=== PATIENT | female | born 2000 | race Caucasian/White ===

== ENCOUNTER 2020-11-07 13:44 | Emergency (ER) | payer OTHER ==
[~2020-11-07] VITALS: Ht 157.5 cm; Wt 118.0 kg
[2020-11-07 16:08] LABS: BACTERIA,URINE FEW /HPF (0-FEW); BILIRUBIN,URINE NEG (NEG); CLARITY,URINE CLEAR; COLOR,URINE STRAW; GLUCOSE,URINE NEG (NEG); NITRITE,URINE NEG (NEG); UROBILINOGEN,URINE 0.2 mg/dL (0.2 mg/dL)
[2020-11-07 16:09] LABS: SQUAMOUS EPITHELIAL CELL,UR MANY /LPF; YEAST,URINE PRESENT /HPF
[2020-11-07] MEDS ORDERED: CEPH500T PO (16:53)
--- NOTE | 2020-11-07 16:55 | PHYS DOC ---
Past History Past Medical History: Asthma, Other Additional Past Medical Histor: rsv as ; eczema Past Surgical History: No Surgical History Alcohol Use: Occasionally General Adult EDM: Chief Complaint: VAGINAL PROBLEM HPI: HPI: Patient is a 20-year-old female who presents with vaginal burning, itchy and large amount of discharge. Patient states "I ended up getting this right before my period every month". Patient denies odor. Patient does report having unprotected sex a month ago with a new partner. Patient denies medical history or history of STDs. Review of Systems: Review of Systems: Constitutional: Denies fever or chills Eyes: Denies change in visual acuity HENT: Denies nasal congestion or sore throat Respiratory: Denies cough or shortness of breath Cardiovascular: Denies chest pain or edema GI: Denies abdominal pain, nausea, vomiting, bloody stools or diarrhea : Denies dysuria Musculoskeletal: Denies back pain or joint pain Integument: Denies rash Neurologic: Denies headache, focal weakness or sensory changes Endocrine: Denies polyuria or polydipsia Lymphatic: Denies swollen glands Psychiatric: Denies depression or anxiety Vaginal: red, white discharge Allergies: Allergies: Allergies Coded Allergies Type Severity Reaction Last Updated Verified No Known Drug Allergies 11/07/20 No Physical Exam: PE: Constitutional: Well developed, well nourished, no acute distress, non-toxic appearance. [] HENT: Normocephalic, atraumatic, bilateral external ears normal, oropharynx moist, no oral exudates, nose normal. [] Eyes: PERRLA, EOMI, conjunctiva normal, no discharge. [] Neck: Normal range of motion, no tenderness, supple, no stridor. [] Cardiovascular:Heart rate regular rhythm, no murmur [] Lungs & Thorax: Bilateral breath sounds clear to auscultation [] Abdomen: Bowel sounds normal, soft, no tenderness, no masses, no pulsatile masses. [] Skin: Warm, dry, no erythema, no rash. [] Back: No tenderness, no CVA tenderness. [] Extremities: No tenderness, no cyanosis, no clubbing, ROM intact, no edema. [] Neurologic: Alert and oriented X 3, normal motor function, normal sensory function, no focal deficits noted. [] Psychologic: Affect normal, judgement normal, mood normal. [] Vaginal: redness, clumpy,white discharge Current Patient Data: Labs: Laboratory Tests Test 11/07/20 14:40 11/07/20 15:13 Urine Collection Type Unknown Urine Color Straw Urine Clarity Clear Urine pH 8.0 Urine Specific [place] 1.015 Urine Protein Neg (NEG-TRACE) Urine Glucose (UA) Neg mg/dL (NEG) Urine Ketones (Stick) Neg mg/dL (NEG) Urine Blood Trace (NEG) Urine Nitrite Neg (NEG) Urine Bilirubin Neg (NEG) Urine Urobilinogen Dipstick 0.2 mg/dL (0.2 mg/dL) Urine Leukocyte Esterase Large (NEG) Urine RBC 3-5 /HPF (0-2) Urine WBC 5-10 /HPF (0-4) Urine Squamous Epithelial Cells Many /LPF Urine Bacteria Few /HPF (0-FEW) Urine Yeast Present /HPF POC Urine HCG, Qualitative hcg negative (Negative) Microbiology 11/07/20 Wet Prep - Final, Complete Vital Signs: Vital Signs Date Time Temp Pulse Resp B/P (MAP) Pulse Ox O2 Delivery O2 Flow Rate FiO2 11/07/20 13:54 98.6 80 18 130/77 (94) 99 Room Air EKG: EKG: [] Radiology/Procedures: Radiology/Procedures: [] Heart Score: C/O Chest Pain: No Risk Factors: Risk Factors: DM, Current or recent (<one month) smoker, HTN, HLP, family history of CAD, obesity. Risk Scores: Score 0 - 3: 2.5% MACE over next 6 weeks - Discharge Home Score 4 - 6: 20.3% MACE over next 6 weeks - Admit for Clinical Observation Score 7 - 10: 72.7% MACE over next 6 weeks - Early Invasive Strategies Course & Med Decision Making: Course & Med Decision Making Pertinent Labs and Imaging studies reviewed. (See chart for details) [] Patient had a large amount of clumpy, white discharge on vaginal exam. Patient's vaginal area was red and irritated from patient scratching. No odor present. Wet prep and GC chlamydia swabs taken. test was negative. Urine was present for yeast, leuks, WBCs. Treated patient with Diflucan in the emergency room and sent home with a prescription for Keflex for UTI. Patient to follow-up with [facility] for reoccurring yeast infections. Patient instructed to return to emergency room with worsening symptoms or concerns. Dragon Disclaimer: Jamee Disclaimer: This electronic medical record was generated, in whole or in part, using a voice recognition dictation system. Departure Departure: Impression: Primary Impression: Yeast infection Disposition: 01 DC HOME SELF CARE/HOMELESS Condition: STABLE Referrals: PCP,DIA (PCP) Additional Instructions: You are seen in the emergency room today for vaginal discharge and itching. Your results came back positive for a UTI and also yeast. You were treated in the emergency room for yeast infection and sent home with a prescription for UTI. You need to follow-up with your [facility] due to chronic yeast infections. Please return to emergency room with worsening symptoms or concerns. EMERGENCY DEPARTMENT GENERAL DISCHARGE INSTRUCTIONS Thank you for coming to [facility] (ED) today and trusting us with you care. We trust that you had a positivie experience in our Emergency Department. If you wish to speak to the department management, you may call the director at [phone]. YOUR FOLLOW UP INSTRUCTIONS ARE FOLLOWS: 1. Do you have a private Doctor? If you do not have a private doctor, please ask for a resource list of physicians or clinics that may be able to assist you with follow up care. 2. The Emergency Physician has interpreted your x-rays. The X-Ray specialist will also review them. If there is a change in the findings, you will be notified in 48 hours when at all possible. 3. A lab test or culture has been done, your results will be reviewed and you will be notified if you need a change in treatment. ADDITIONAL INSTRUCTIONS AND INFORMATION: 1. Your care today has been supervised by a physician who is specially trained in emergency care. Many problems require more than one evaluation for a complete diagnosis and treatment. We recommend that you schedule your follow up appointment as recommended to ensure complete treatment of you illness or injury. If you are unable to obtain follow up care and continue to have a problem, or if your condition worsens, we recommend that you return to the ED. 2. We are not able to safely determine your condition over the phone nor are we able to give sound medical advice over the phone. For these safety reasons, if you call for medical advice we will ask you to come to the ED for further evaluation. 3. If you have any questions regarding these discharge instructions please call the ED at [phone]. SAFETY INFORMATION: In the interest of safety, wellness, and injury prevention; we encourage you to wear your sealbelt, if you smoke; quite smoking, and we encourage family to use a protective helmet for bicycling and other sporting events that present an increased risk for head injury. IF YOUR SYMPTOMS WORSEN OR NEW SYMPTOMS DEVELOP, OR YOU HAVE CONCERNS ABOUT YOUR CONDITION; OR IF YOUR CONDITION WORSENS WHILE YOU ARE WAITING FOR YOUR FOLLOW UP APPOINTMENT; EITHER CONTACT YOUR PRIMARY CARE DOCTOR, THE PHYSICIAN WHOSE NAME AND NUMBER YOU WERE GIVEN, OR RETURN TO THE ED IMMEDIATELY. Scripts Cephalexin (CEPHALEXIN) 500 Mg Tablet 500 MG PO BID for uti for 7 Days, #14 TAB Prov: WADE AGUILAR APRN 11/07/20 WADE AGUILAR APRN Nov 07, 2020 16:55
[2020-11-07] MEDS ORDERED: FLUCONAZOLE 100 MG TABLET. PO ONE (17:00)
[2020-11-07 17:03] VITALS: BP 133/81
== END 2020-11-07 17:03 | disposition home or self-care (01) ==
LOC: ER 13:44
DX: B37.3 Candidiasis of vulva and vagina (principal); J45.909 Unspecified asthma, uncomplicated
CPT/HCPCS: 81001; 81025; 87086; 87491; 87591; 99284; Q0111

== ENCOUNTER 2020-11-25 11:46 | Emergency (ER) | payer OTHER ==
[~2020-11-25] VITALS: Ht 157.5 cm; Wt 118.7 kg
[~2020-11-25 11:46] MED LIST: CEPH500T PO
[2020-11-25 11:51] VITALS: BP 134/87
[2020-11-25] MEDS ORDERED: FLUCONAZOLE 100 MG TABLET. PO ONE (13:00)
--- NOTE | 2020-11-25 13:02 | PHYS DOC ---
Past History Past Medical History: Asthma, Other Additional Past Medical Histor: rsv as ; eczema Past Surgical History: No Surgical History Alcohol Use: Occasionally Adult General Chief Complaint Chief Complaint: SEXUALLY TRANSMITTED DISEASE HPI HPI Patient is a 20-year-old female with past history of asthma presenting the [facility] concern for new onset of vaginal discomfort. Patient states that a week and a half ago she was seen in the emergency department for discomfort was diagnosed with urinary tract infection and yeast infection. Patient states at that time she was diagnosed with gonorrhea was discharged home with a course of doxycycline and was given a single dose of fluconazole. Patient states that her symptoms initially resolved after taking the doxycycline however states that her symptoms of yeast infection and return with irritation, vaginal pain and usual discharge. Patient is requesting that her urine and cervix be tested to make sure that those infections are gone. Patient does separately state that she has symptoms of vaginal yeast infection that occur with her menses. Denies any new fever, chills, nausea or vomiting. Denies any new sexual contacts and states that she is no longer sexually active Review of Systems Review of Systems Constitutional: Denies fever or chills [] Eyes: Denies change in visual acuity, redness, or eye pain [] HENT: Denies nasal congestion or sore throat [] Respiratory: Denies cough or shortness of breath [] Cardiovascular: No additional information not addressed in HPI [] GI: Denies abdominal pain, nausea, vomiting, bloody stools or diarrhea [] : Denies dysuria or hematuria [] Musculoskeletal: Denies back pain or joint pain [] Integument: Denies rash or skin lesions [] Neurologic: Denies headache, focal weakness or sensory changes [] Endocrine: Denies polyuria or polydipsia [] All other systems were reviewed and found to be within normal limits, except as documented in this note. Current Medications Current Medications Current Medications Medications (Trade) Dose Ordered Sig/Ivonne Start Time Stop Time Status Last Admin Dose Admin Fluconazole (Diflucan) 100 mg 1X ONCE 11/25/20 13:00 11/25/20 13:01 Allergies Allergies Allergies Coded Allergies Type Severity Reaction Last Updated Verified No Known Drug Allergies 11/07/20 No Physical Exam Physical Exam Constitutional: Well developed, well nourished, no acute distress, non-toxic appearance. [] HENT: Normocephalic, atraumatic, bilateral external ears normal, oropharynx moist, no oral exudates, nose normal. [] Eyes: PERRLA, EOMI, conjunctiva normal, no discharge. [] Neck: Normal range of motion, no tenderness, supple, no stridor. [] Cardiovascular:Heart rate regular rhythm, no murmur [] Lungs & Thorax: Bilateral breath sounds clear to auscultation [] Abdomen: Bowel sounds normal, soft, no tenderness, no masses, no pulsatile masses. [] Skin: Warm, dry, no erythema, no rash. [] Back: No tenderness, no CVA tenderness. [] Extremities: No tenderness, no cyanosis, no clubbing, ROM intact, no edema. [] Neurologic: Alert and oriented X 3, normal motor function, normal sensory function, no focal deficits noted. [] Psychologic: Affect normal, judgement normal, mood normal. [] Current Patient Data Vital Signs Vital Signs Date Time Temp Pulse Resp B/P (MAP) Pulse Ox O2 Delivery O2 Flow Rate FiO2 11/25/20 11:51 98.1 70 16 134/87 (103) 97 Room Air EKG EKG [] Radiology/Procedures Radiology/Procedures [] Heart Score C/O Chest Pain: No Risk Factors: Risk Factors: DM, Current or recent (<one month) smoker, HTN, HLP, family history of CAD, obesity. Risk Scores: Risk Factors: DM, Current or recent (<one month) smoker, HTN, HLP, family history of CAD, obesity. Course & Med Decision Making Course & Med Decision Making Pertinent Labs and Imaging studies reviewed. (See chart for details) 20f presenting with what appears to be an acute onset of yeast infection also requesting gonorrhea and urine testing. Analysis obtained and negative. Patient be discharged home with a course of fluconazole and instructed to follow-up results for gonorrhea and Chlamydia testing Dragon Disclaimer Dragon Disclaimer This electronic medical record was generated, in whole or in part, using a voice recognition dictation system. Departure Departure: Impression: Primary Impression: Vaginal candidiasis Disposition: 01 DC HOME SELF CARE/HOMELESS Condition: GOOD Referrals: PCP,NO (PCP) Patient Instructions: [place] Infection, Adult, Candidal Vulvovaginitis, [id number] Additional Instructions: EMERGENCY DEPARTMENT GENERAL DISCHARGE INSTRUCTIONS Thank you for coming to [facility] (ED) today and trusting us with you care. We trust that you had a positive experience in our Emergency Department. If you wish to speak to the department management, you may call the Director at [phone]. YOUR FOLLOW UP INSTRUCTIONS ARE FOLLOWS: 1. Do you have a private Doctor? If you do not have a private doctor, please ask for a resource list of physicians or clinics that may be able to assist you with follow up care. 2. The Emergency Physicain has interpreted your x-rays. The X-Ray specialist will also review them. If there is a change in the findings, you will be notified in 48 hours when at all possible. 3. A lab test or culture has been done, your results will be reviewed and you will be notified if you need a change in treatment. ADDITIONAL INSTRUCTIONS AND INFORMATION: 1. Your care today has been supervised by a physician who is specially trained in emergency care. Many problems require more than one evaluation for a complete diagnosis and treatment. We recommend that you schedule your follow up appointment as recommended to ensure complete treatment of you illness or injury. If you are unable to obtain follow up care and continue to have a problem, or if your condition worsens, we recommend that you return to the ED. 2. We are not able to safely determine your condition over the phone nor are we able to give sound medical advice over the phone. For these safety reasons, if you call for medical advice we will ask you to come to the ED for further evaluation. 3. If you have any questions regarding these discharge instructions please call the ED at [phone]. SAFETY INFORMATION: In the interest of safety, wellness, and injury prevention; we encourage you to wear your sealbelt, if you smoke; quite smoking, and we encourage family to use a protective helmet for bicycling and other sporting events that present an increased risk for head injury. IF YOUR SYMPTOMS WORSEN OR NEW SYMPTOMS DEVELOP, OR YOU HAVE CONCERNS ABOUT YOUR CONDITION; OR IF YOUR CONDITION WORSENS WHILE YOU ARE WAITING FOR YOUR FOLLOW UP APPOINTMENT; EITHER CONTACT YOUR PRIMARY CARE DOCTOR, THE PHYSICIAN WHOSE NAME AND NUMBER YOU WERE GIVEN, OR RETURN TO THE ED IMMEDIATELY. Scripts Fluconazole (FLUCONAZOLE) 100 Mg Tablet 1 TAB PO ONCE for pain, #1 TAB 3 Refills Prov: PREET ROMAN MD 11/25/20 PREET ROMAN MD Nov 25, 2020 13:02
[2020-11-25 13:18] LABS: AMORPHOUS SEDIMENT,UR PRESENT /HPF; BACTERIA,URINE 0 /HPF (0-FEW); BILIRUBIN,URINE NEG (NEG); CLARITY,URINE CLEAR; COLOR,URINE YELLOW; GLUCOSE,URINE NEG (NEG); NITRITE,URINE NEG (NEG); RBC,URINE RARE /HPF (0-2); SQUAMOUS EPITHELIAL CELL,UR MANY /LPF
[2020-11-25] MEDS ORDERED: FLUC100T4 PO (13:48)
[2020-11-26 20:07] LABS: CHLAMYDIA PROBE Negative (Negative)
== END 2020-11-25 13:54 | disposition left against medical advice (07) ==
LOC: ER 11:46
DX: B37.3 Candidiasis of vulva and vagina (principal); J45.909 Unspecified asthma, uncomplicated; Z87.440 Personal history of urinary (tract) infections
CPT/HCPCS: 81001; 87491; 87591; 99283

== ENCOUNTER 2021-01-10 15:05 | Emergency (ER) | payer OTHER ==
[~2021-01-10] VITALS: Ht 152.4 cm; Wt 122.0 kg
[~2021-01-10 15:05] MED LIST changes: +FLUC100T4 PO
[2021-01-10 15:43] VITALS: BP 119/91
[2021-01-10 16:17] LABS: BACTERIA,URINE FEW /HPF (0-FEW); BILIRUBIN,URINE NEG (NEG); CLARITY,URINE CLEAR; COLOR,URINE YELLOW; GLUCOSE,URINE NEG (NEG); NITRITE,URINE NEG (NEG); RBC,URINE 20-40 /HPF (0-2); SQUAMOUS EPITHELIAL CELL,UR OCC /LPF
[2021-01-10] MEDS ORDERED: cefTRIAXone IM 1 GM VIAL IM ONE (16:42)
[2021-01-10] MEDS ORDERED: cefTRIAXone IM 500 MG VIAL. IM ONE (16:45)
[2021-01-10] MEDS ORDERED: FLUC150T PO (16:50)
[2021-01-10] MEDS ORDERED: DOXY100T PO (16:50)
--- NOTE | 2021-01-10 16:51 | PHYS DOC ---
Past History Past Medical History: No Pertinent History Additional Past Medical Histor: rsv as infant; eczema Past Surgical History: No Surgical History Alcohol Use: Occasionally Adult General Chief Complaint Chief Complaint: SEXUALLY TRANSMITTED DISEASE HPI HPI Patient is a 20-year-old female presents emergency department complaining of an STD exposure. Patient states she had unprotected vaginal sex with a male 1 week ago who told her today he tested positive for gonorrhea and chlamydia. Patient states she is on day 2 of her menstrual cycle, states she cannot determine whether she is having vaginal discharge or if it is normal menses discharge. Patient denies any vaginal itching, denies vaginal sores or vaginal pain. Patient denies any abdominal cramping or pelvic cramping. Patient denies nausea vomiting diarrhea or constipation. Patient states that she has been getting vaginal yeast infections once to twice a month for several years now. Patient states she comes to the ER and they always treat her with the same medications. Patient states she has not followed up with an [employer] or the health department. Patient states she wishes to be treated for gonorrhea chlamydia, also wants a medication to treat a yeast infection she knows she will get from taking an antibiotic. Review of Systems Review of Systems 14 body systems of review of systems have been reviewed. See HPI for pertinent positives and negative responses, otherwise all other systems are negative, nonpertinent or noncontributory. Current Medications Current Medications Current Medications Medications (Trade) Dose Ordered Sig/Ivonne Start Time Stop Time Status Last Admin Dose Admin Ceftriaxone Sodium (Rocephin Im) 500 mg 1X ONCE 01/10/21 16:45 01/10/21 16:46 UNV Allergies Allergies Allergies Coded Allergies Type Severity Reaction Last Updated Verified No Known Drug Allergies 11/07/20 No Physical Exam Physical Exam Constitutional: Well developed, well nourished, no acute distress, non-toxic appearance. 20-year-old female no apparent distress. HENT: Normocephalic, atraumatic, bilateral external ears normal, oropharynx moist, no oral exudates, nose normal. Eyes: PERRLA, EOMI, conjunctiva normal, no discharge. Neck: Normal range of motion, no tenderness, supple, no stridor. Cardiovascular:Heart rate regular rhythm, no murmur Lungs & Thorax: Bilateral breath sounds clear to auscultation Abdomen: Bowel sounds normal, soft, no tenderness, no masses, no pulsatile masses. Skin: Warm, dry, no erythema, no rash. Back: No tenderness, no CVA tenderness. Extremities: No tenderness, no cyanosis, no clubbing, ROM intact, no edema. Neurologic: Alert and oriented X 3, normal motor function, normal sensory function, no focal deficits noted. Psychologic: Affect normal, judgement normal, mood normal. Current Patient Data Vital Signs Vital Signs Date Time Temp Pulse Resp B/P (MAP) Pulse Ox O2 Delivery O2 Flow Rate FiO2 01/10/21 15:43 98.6 67 20 119/91 (100) 97 Room Air Lab Results Laboratory Tests Test 01/10/21 15:40 01/10/21 15:43 Urine Collection Type Unknown Urine Color Yellow Urine Clarity Clear Urine pH 7.0 Urine Specific [place] 1.020 Urine Protein Neg (NEG-TRACE) Urine Glucose (UA) Neg mg/dL (NEG) Urine Ketones (Stick) Neg mg/dL (NEG) Urine Blood Large (NEG) Urine Nitrite Neg (NEG) Urine Bilirubin Neg (NEG) Urine Urobilinogen Dipstick 1.0 mg/dL (0.2 mg/dL) Urine Leukocyte Esterase Trace (NEG) Urine RBC 20-40 /HPF (0-2) Urine WBC 1-4 /HPF (0-4) Urine Squamous Epithelial Cells Occ /LPF Urine Bacteria Few /HPF (0-FEW) POC Urine HCG, Qualitative hcg negative (Negative) EKG EKG [] Radiology/Procedures Radiology/Procedures [] Heart Score C/O Chest Pain: No Risk Factors: Risk Factors: DM, Current or recent (<one month) smoker, HTN, HLP, family history of CAD, obesity. Risk Scores: Risk Factors: DM, Current or recent (<one month) smoker, HTN, HLP, family history of CAD, obesity. Course & Med Decision Making Course & Med Decision Making Pertinent Labs and Imaging studies reviewed. (See chart for details) 20-year-old female, vital signs reviewed, presents to the emergency department requesting to be treated for an STI exposure. Physical examination was unremarkable. The patient and I made a joint decision to defer pelvic examination related to no vaginal discharge, no vaginal pain, no sores or cramping. Patient states she just wants treated for an STI exposure as her recent sexual partner told her he was positive for gonorrhea and chlamydia. Discussed with patient will obtain a urinalysis as a to rule out urinary tract infection, also to rule out . Patient's urine equivocal, the patient was not . Patient treated with 500 mg IM Rocephin, prescriptions written for 150 mg Diflucan 3 tablets to take days 1 3 and 7, doxycycline 100 mg tablets twice daily x7 days. Discussed with patient to follow-up with health department for ongoing STI exposures, discussed with patient to follow-up with [employer] specialist to review and examine why she reports yeast infections 1-2 times a month for several years. Discussed with patient safe sex practices and barrier protective sex. Patient gave verbal understanding of discharge home instructions, follow-up with PCP/[employer], return ER precautions and concerns, medications to treat STIs, safe sex practices, home prescriptions. Patient was thankful and states she is ready to go home, patient was discharged home without incident. Dragon Disclaimer Dragon Disclaimer This electronic medical record was generated, in whole or in part, using a voice recognition dictation system. Departure Departure: Impression: Primary Impression: STI (sexually transmitted infection) Disposition: HOME / SELF CARE / HOMELESS Condition: GOOD Referrals: PCPDIA (PCP) DAYANARA JULIEN Patient Instructions: Sexuality and Disability Additional Instructions: You are seen today in the emergency department for an exposure to gonorrhea chlamydia. I have treated you with 500 mg of Rocephin intramuscular injection in the emergency department today. Your urine was not infected, you are not . I am writing you a prescription for doxycycline 100 mg tablets that you will take twice a day for 7 days. I am also prescribing you Diflucan 150 mg tablets 3 each that you will take 1 at the beginning of your antibiotic regimen today, take another 1 in 3 days, and take the last one when you complete your doxycycline antibiotic regimen at the end of 7 days. We have discussed your recurrent yeast infections and vaginal infections. It is important that you follow-up with a [employer] specialist, if you are unable to obtain an appointment with an [employer] specialist, you may use the [employer] specialist Dr. Clay, he is located at [address] [place] [address], his office phone number is [phone]. You may also follow-up at the health department for ongoing sexually transmitted disease treatments. Please return to the emergency department for worsening symptoms or other concerns. As we discussed please use barrier protection sex in the future to prevent sexually transmitted diseases. EMERGENCY DEPARTMENT GENERAL DISCHARGE INSTRUCTIONS Thank you for coming to [facility] (ED) today and trusting us with you care. We trust that you had a positivie experience in our Emergency Department. If you wish to speak to the department management, you may call the director at [phone]. YOUR FOLLOW UP INSTRUCTIONS ARE FOLLOWS: 1. Do you have a private Doctor? If you do not have a private doctor, please ask for a resource list of physicians or clinics that may be able to assist you with follow up care. 2. The Emergency Physician has interpreted your x-rays. The X-Ray specialist will also review them. If there is a change in the findings, you will be notified in 48 hours when at all possible. 3. A lab test or culture has been done, your results will be reviewed and you will be notified if you need a change in treatment. ADDITIONAL INSTRUCTIONS AND INFORMATION: 1. Your care today has been supervised by a physician who is specially trained in emergency care. Many problems require more than one evaluation for a complete diagnosis and treatment. We recommend that you schedule your follow up appointment as recommended to ensure complete treatment of you illness or injury. If you are unable to obtain follow up care and continue to have a problem, or if your condition worsens, we recommend that you return to the ED. 2. We are not able to safely determine your condition over the phone nor are we able to give sound medical advice over the phone. For these safety reasons, if you call for medical advice we will ask you to come to the ED for further evaluation. 3. If you have any questions regarding these discharge instructions please call the ED at [phone]. SAFETY INFORMATION: In the interest of safety, wellness, and injury prevention; we encourage you to wear your sealbelt, if you smoke; quite smoking, and we encourage family to use a pr otective helmet for bicycling and other sporting events that present an increased risk for head injury. IF YOUR SYMPTOMS WORSEN OR NEW SYMPTOMS DEVELOP, OR YOU HAVE CONCERNS ABOUT YOUR CONDITION; OR IF YOUR CONDITION WORSENS WHILE YOU ARE WAITING FOR YOUR FOLLOW UP APPOINTMENT; EITHER CONTACT YOUR PRIMARY CARE DOCTOR, THE PHYSICIAN WHOSE NAME AND NUMBER YOU WERE GIVEN, OR RETURN TO THE ED IMMEDIATELY. Scripts Fluconazole (DIFLUCAN) 150 Mg Tablet 1 TAB PO ONCE for YEAST INFECTION, #3 TAB 0 Refills Take 1 tablet today, take another tablet on day 3, take the final tablet on day 7 when you finish your antibiotic regimen. Prov: JOSE FINK APRN 01/10/21 Doxycycline Hyclate (DOXYCYCLINE HYCLATE) 100 Mg Tablet 1 TAB PO BID for STI INFECTION, #14 TAB 0 Refills Prov: JOSE FINK APRN 01/10/21 JOSE FINK APRN January 10, 2021 16:51
== END 2021-01-10 16:56 | disposition home or self-care (01) ==
LOC: ER 15:05
DX: A64 Unspecified sexually transmitted disease (principal)
CPT/HCPCS: 36415; 81001; 81025; 87086; 87147; 87491; 87591; 96372; 99283; J0696

== ENCOUNTER 2021-04-05 09:48 | Emergency (ER) | payer OTHER ==
[~2021-04-05] VITALS: Ht 152.4 cm; Wt 121.0 kg
[~2021-04-05 09:48] MED LIST changes: +DOXY100T PO; +FLUC150T PO
[2021-04-05 09:59] VITALS: BP 121/80
[2021-04-05] MEDS ORDERED: ALBUTEROL SULFATE 8GM INHALER. INH ONE (10:00)
[2021-04-05] MEDS ORDERED: DEXAMETHASONE 4 MG TABLET PO ONE (10:00)
[2021-04-05] MEDS ORDERED: ACETAMINOPHEN 500 MG TABLET PO ONE (10:00)
[2021-04-05] MEDS ORDERED: guaiFENesin DM 200MG/20MG 10 ML SYRUP PO ONE (10:00)
--- NOTE | 2021-04-05 10:03 | PHYS DOC ---
Past History Past Medical History: No Pertinent History Additional Past Medical Histor: rsv as infant; eczema Past Surgical History: No Surgical History Alcohol Use: Occasionally Adult General Chief Complaint Chief Complaint: CONGESTION HPI HPI Patient is a 20-year-old female who past medical history significant for seasonal allergies and mild intermittent asthma who presents with a chief complaint of sinus congestion and need for refill on albuterol inhaler until she can see her doctor. States has been going on about 2 days. Denies any recent traumas, travels, fevers, chest pain, shortness of breath, abdominal pain, nausea, vomiting, dysuria, hematuria or blood in the stool. States she had not taken any medications for this. Review of Systems Review of Systems Review of systems otherwise unremarkable except noted in HPI Allergies Allergies Allergies Coded Allergies Type Severity Reaction Last Updated Verified No Known Drug Allergies 11/07/20 No Physical Exam Physical Exam Constitutional: Well developed, well nourished, no acute distress, non-toxic appearance. [] HENT: Normocephalic, atraumatic, bilateral external ears normal, oropharynx moist, no oral exudates, nose normal. [] Eyes: conjunctiva normal, no discharge. [] Neck: Normal range of motion, no tenderness, supple, no stridor. [] Cardiovascular:Heart rate regular rhythm, no murmur [] Lungs & Thorax: Bilateral breath sounds clear to auscultation [] Skin: Warm, dry, no erythema, no rash. [] Extremities: No tenderness, no cyanosis, no clubbing, ROM intact, no edema. [] Neurologic: Alert and oriented X 3, normal motor function, normal sensory function, no focal deficits noted. [] Psychologic: Affect normal, judgement normal, mood normal. [] EKG EKG [] Radiology/Procedures Radiology/Procedures [] Heart Score C/O Chest Pain: No Risk Factors: Risk Factors: DM, Current or recent (<one month) smoker, HTN, HLP, family histo ry of CAD, obesity. Risk Scores: Risk Factors: DM, Current or recent (<one month) smoker, HTN, HLP, family history of CAD, obesity. Course & Med Decision Making Course & Med Decision Making Patient is a 20-year-old female who presents with seasonal allergies and nasal congestion vital signs not concerning. Physical exam noted above. Patient given steroids, albuterol inhaler and breathing treatment, and Tylenol and expectorant. Gave recommendations for symptomatic treatment at home. Gave albuterol inhaler for home. Advised to follow-up in the morning with primary care physician. Gave return cautions to the ED. Patient grateful, verbalized understanding and agreed with plan of discharge. [] Dragon Disclaimer Dragon Disclaimer This electronic medical record was generated, in whole or in part, using a voice recognition dictation system. Departure Departure: Impression: Primary Impression: Seasonal allergies Additional Impression: Nasal congestion Disposition: HOME / SELF CARE / HOMELESS Condition: GOOD Referrals: PCP,NO (PCP) RICKEY STEINER MD Patient Instructions: Allergic Rhinitis Additional Instructions: Thank you for coming into the emergency department today and allowing us to take care of you. Please read all the attached information above carefully. Please continue an [id number] regimen of antihistamines and mucus reducers as we discussed. Please use your albuterol as we discussed. Please call your primary care physician or the primary care physician at the number provided in the morning to set up a follow-up appointment as soon as you can. Please come back to the ED with new or concerning symptoms as discussed. Problem Qualifiers LUIZ OTTO MD Apr 05, 2021 10:03
== END 2021-04-05 10:12 | disposition home or self-care (01) ==
LOC: ER 09:48
DX: J30.2 Other seasonal allergic rhinitis (principal); R09.81 Nasal congestion
CPT/HCPCS: 94640; 99284; J8540; 94664

== ENCOUNTER 2021-04-08 14:31 | Emergency (ER) | payer OTHER ==
[~2021-04-08] VITALS: Ht 157.5 cm; Wt 120.8 kg
[2021-04-08 14:41] VITALS: BP 123/92
[2021-04-08] MEDS ORDERED: predniSONE 20 MG TABLET PO ONE (15:00)
[2021-04-08] MEDS ORDERED: IPRATRPIUM/ALBUTEROL 0.5/2.5MG 3 ML NEBU. NEB ONE (15:00)
--- NOTE | 2021-04-08 15:03 | PHYS DOC ---
Past History Past Medical History: No Pertinent History Additional Past Medical Histor: rsv as infant; eczema (CONCHITA SCHUMACHER APRN) Past Surgical History: No Surgical History (CONCHITA SCHUMACHER APRN) Alcohol Use: Occasionally (CONCHITA SCHUMACHER APRN) General Adult EDM: Chief Complaint: COUGH HPI: HPI: Patient is a 20-year-old female who is being seen in the ER today for shortness of breath and productive cough. Patient reports that she was seen 3 days ago for similar symptoms and was diagnosed with seasonal allergies. She was given an albuterol inhaler to go home with. She was also treated with a steroid and cough medication in the ER. Patient reports that she continues to have her symptoms and she has noticed many people she is exposed to have similar symptoms. She is not vaccinated for COVID-19. She has a history of asthma. She denies fevers, chest pain, nausea, vomiting, diarrhea. (CONCHITA SCHUMACHER APRN) Review of Systems: Review of Systems: 14 body systems of the review of systems have been reviewed. See HPI for pertinent positive and negative responses, otherwise all other systems are negative, nonpertinent or noncontributory (CONCHITA SCHUMACHER APRN) Allergies: Allergies: Allergies Coded Allergies Type Severity Reaction Last Updated Verified No Known Drug Allergies 04/08/21 No (CONCHITA SCHUMACHER APRN) Physical Exam: PE: Constitutional: Well developed, well nourished, no acute distress, non-toxic appearance. [] HENT: Normocephalic, atraumatic, bilateral external ears normal, oropharynx moist, no oral exudates, nose normal. [] Eyes: PERRL, conjunctiva normal, no discharge. [] Neck: Normal range of motion, no stridor Cardiovascular:Heart rate regular rhythm, no murmur [] Lungs & Thorax: Wheezing noted throughout lungs Abdomen: Bowel sounds normal, soft, no tenderness, no masses, no pulsatile masses. [] Skin: Warm, dry, no erythema, no rash. [] Back: Normal range of motion Extremities: No tenderness, no cyanosis, no clubbing, ROM intact, no edema. [] Neurologic: Alert and oriented X 3, normal motor function, normal sensory fun ction, no focal deficits noted. [] Psychologic: Affect normal, judgement normal, mood normal. [] (CONCHITA SCHUMACHER APRN) Current Patient Data: Vital Signs: Vital Signs Date Time Temp Pulse Resp B/P (MAP) Pulse Ox O2 Delivery O2 Flow Rate FiO2 04/08/21 14:41 97.8 79 18 123/92 95 Room Air (CONCHITA SCHUMACHER APRN) EKG: EKG: [] (CONCHITA SCHUMACHER APRN) Radiology/Procedures: Radiology/Procedures: PROCEDURE: CHEST AP ONLY XR CHEST 1V CLINICAL INDICATIONS: Shortness of air COMPARISON: None available. Findings: No acute lung infiltrate or pleural effusion or pulmonary edema or lung mass or pneumothorax is seen. The heart size, pulmonary vasculature, mediastinum and both janet are unremarkable. IMPRESSION: No acute radiographic abnormality is seen. Electronically signed by: Poncho Jose MD (04/08/2021 3:08 PM) [id number] DICTATED AND SIGNED BY: PONCHO JOSE MD DATE: 04/08/21 1505 CC: EMERGENCY,DEPARTMENT; CONCHITA SCHUMACHER APRN; PCP,NO ~MTH0 0 [] (CONCHITA SCHUMACHER APRN) Heart Score: C/O Chest Pain: No Risk Factors: Risk Factors: DM, Current or recent (<one month) smoker, HTN, HLP, family history of CAD, obesity. Risk Scores: Score 0 - 3: 2.5% MACE over next 6 weeks - Discharge Home Score 4 - 6: 20.3% MACE over next 6 weeks - Admit for Clinical Observation Score 7 - 10: 72.7% MACE over next 6 weeks - Early Invasive Strategies (CONCHITA SCHUMACHER APRN) Course & Med Decision Making: Course & Med Decision Making Pertinent Labs and Imaging studies reviewed. (See chart for details) [] Patient is a 20-year-old female being seen in the ER for cough and shortness of breath. Chest x-ray was performed that showed no acute findings. Patient was also Covid tested and will be notified of those results when they become available. Patient was treated with a breathing treatment and steroids. Following breathing treatment, patient reports improvement in her shortness of breath and wheezing has improved. She was discharged home with steroids and a Tessalon follow-up for cough. I discussed with patient all findings and diagnostic testing as well as the need to follow-up with PCP for further evaluation and treatment or return to the ER if any new or worsening symptoms. Strict return precautions were also discussed at length. Patient voiced understanding and agreement with the plan. Patient is hemodynamically stable at the time of disposition. (CONCHITA SCHUMACHER APRN) Jamee Disclaimer: Jamee Disclaimer: This electronic medical record was generated, in whole or in part, using a voice recognition dictation system. (CONCHITA SCHUMACHER APRN) Attending Co-Sign The patient was seen and interviewed as well as examined at the bedside. The chart was reviewed. The case was discussed. Agree with the plan of care. (CAL ABERNATHY DO) Departure Departure: Impression: Primary Impression: Person under investigation for COVID-19 Additional Impression: Asthma exacerbation Qualified Codes: J45.901 - Unspecified asthma with (acute) exacerbation Disposition: HOME / SELF CARE / HOMELESS Condition: GOOD Referrals: PCP,DIA (PCP) Patient Instructions: Asthma, Adult Additional Instructions: You were seen in the ER today for shortness of breath and cough. A chest x-ray was performed and as we discussed it showed no acute findings. Your Covid tested in the ER. We will notify you of your these results whenever they become available. Please self isolate until you receive these results. You were treated in the ER with a breathing treatment and a steroid. You reported improvement in your shortness of breath following the breathing treatment. You are also getting a prescription for a steroid and a cough medication. Please take these medications as directed. You can take Tylenol or ibuprofen for any pain at home. Increase your fluids to thin your secretions. Continue taking your albuterol inhaler at home. If you develop worsening of your shortness of breath, chest pain, fevers refractory to treatment or any other symptoms please return to the ER. Follow-up with your primary care provider tomorrow regarding your ER visit. EMERGENCY DEPARTMENT GENERAL DISCHARGE INSTRUCTIONS Thank you for coming to [facility] ([facility]) today and trusting us with you care. We trust that you had a positivie experience in our Emergency Department. If you wish to speak to the department management, you may call the director at [phone]. YOUR FOLLOW UP INSTRUCTIONS ARE FOLLOWS: 1. Do you have a private Doctor? If you do not have a private doctor, please ask for a resource list of physicians or clinics that may be able to assist you with follow up care. 2. The Emergency Physician has interpreted your x-rays. The X-Ray specialist will also review them. If there is a change in the findings, you will be notified in 48 hours when at all possible. 3. A lab test or culture has been done, your results will be reviewed and you will be notified if you need a change in treatment. ADDITIONAL INSTRUCTIONS AND INFORMATION: 1. Your care today has been supervised by a physician who is specially trained in emergency care. Many problems require more than one evaluation for a complete diagnosis and treatment. We recommend that you schedule your follow up appointment as recommended to ensure complete treatment of you illness or injury. If you are unable to obtain follow up care and continue to have a problem, or if your condition worsens, we recommend that you return to the ED. 2. We are not able to safely determine your condition over the phone nor are we able to give sound medical advice over the phone. For these safety reasons, if you call for medical advice we will ask you to come to the ED for further evaluation. 3. If you have any questions regarding these discharge instructions please call the ED at [phone]. SAFETY INFORMATION: In the interest of safety, wellness, and injury prevention; we encourage you to wear your sealbelt, if you smoke; quite smoking, and we encourage family to use a protective helmet for bicycling and other sporting events that present an increased risk for head injury. IF YOUR SYMPTOMS WORSEN OR NEW SYMPTOMS DEVELOP, OR YOU HAVE CONCERNS ABOUT YOUR CONDITION; OR IF YOUR CONDITION WORSENS WHILE YOU ARE WAITING FOR YOUR FOLLOW UP APPOINTMENT; EITHER CONTACT YOUR PRIMARY CARE DOCTOR, THE PHYSICIAN WHOSE NAME AND NUMBER YOU WERE GIVEN, OR RETURN TO THE ED IMMEDIATELY. Scripts Benzonatate (TESSALON PERLE) 100 Mg Capsule 1 CAP PO TID PRN for COUGH for 3 Days, #9 CAP 0 Refills Prov: CONCHITA SCHUMACHER [employer]ING W[employer]ING MACHINE OPERATOR 04/08/21 Prednisone (PREDNISONE) 20 Mg Tablet 3 TAB PO DAILY for allergies for 5 Days, #15 TAB 0 Refills Prov: CONCHITA SCHUMACHER [employer]ING MACHINE OPERATOR 04/08/21 CONCHITA SCHUMACHER APRN Apr 08, 2021 15:03 CAL ABERNATHY DO Apr 09, 2021 07:02
[2021-04-08] MEDS ORDERED: predniSONE 10 MG TABLET. ONE (15:09)
--- NOTE | 2021-04-08 15:10 | RAD ---
XR CHEST 1V CLINICAL INDICATIONS: Shortness of air COMPARISON: None available. Findings: No acute lung infiltrate or pleural effusion or pulmonary edema or lung mass or pneumothora x is seen. The heart size, pulmonary vasculature, mediastinum and both janet are unremarkable. IMPRESSION: No acute radiographic abnormality is seen. Electronically signed by: Dereck Jose MD (04/08/2021 3:08 PM) [id number]
[2021-04-08] MEDS ORDERED: PRED20TA PO (15:51)
[2021-04-08] MEDS ORDERED: BENZ100C PO (15:51)
== END 2021-04-08 16:30 | disposition home or self-care (01) ==
LOC: ER 14:31
DX: J45.901 Unspecified asthma with (acute) exacerbation (principal); Z20.822 Contact with and (suspected) exposure to COVID-19
CPT/HCPCS: 71045; 94640; 99284; C9803; J7512; U0003

== ENCOUNTER 2021-05-26 01:51 | Emergency (ER) | payer SELFPAY ==
[~2021-05-26] VITALS: Ht 157.5 cm; Wt 122.2 kg
[~2021-05-26 01:51] MED LIST changes: +BENZ100C PO; +PRED20TA PO
[2021-05-26] MEDS ORDERED: IPRATRPIUM/ALBUTEROL 0.5/2.5MG 3 ML NEBU. NEB ONE ×3 (02:00→03:15)
[2021-05-26] MEDS ORDERED: IPRATRPIUM/ALBUTEROL 0.5/2.5MG 3 ML NEBU. ONE (02:05)
[2021-05-26] MEDS ORDERED: DEXAMETHASONE SOD PHOS 4 MG/ML VIAL. IV ONE (02:15)
--- NOTE | 2021-05-26 02:19 | PHYS DOC ---
Past History Past Medical History: No Pertinent History Additional Past Medical Histor: rsv as infant; eczema Past Surgical History: No Surgical History Alcohol Use: Occasionally General Adult EDM: Chief Complaint: SHORTNESS OF BREATH HPI: HPI: Patient is a 21-year-old female coming in for 1 day of asthma exacerbation. Patient states she is also had congestion and rhinorrhea. Patient states been taking [id number] decongestants and antihistamines without improvement. Patient does not have a primary care and follows with the ED for her asthma management. Was last seen to 3 weeks ago was given an inhaler. Patient states she has run out of the inhaler. Denies any fever vomiting or diarrhea. Has not been vaccinated against Covid. Smokes cigarettes and occasional marijuana. Is allergic to animals and pollen Review of Systems: Review of Systems: All other systems within normal limits except for as noted in the HPI Current Medications: Current Meds: Current Medications Medications (Trade) Dose Ordered Sig/Ivonne Start Time Stop Time Status Last Admin Dose Admin Albuterol/ Ipratropium (Duoneb) 3 ml STK-MED ONCE 05/26/21 02:05 05/26/21 02:05 DC Dexamethasone Sodium Phosphate (Decadron) 16 mg 1X ONCE 05/26/21 02:15 05/26/21 02:16 DC Allergies: Allergies: Allergies Coded Allergies Type Severity Reaction Last Updated Verified No Known Drug Allergies 04/08/21 No Physical Exam: PE: Constitutional: Well developed, well nourished, no acute distress, non-toxic appearance. [] HENT: Normocephalic, atraumatic, bilateral external ears normal, nose normal. [] Eyes: PERRLA, conjunctiva normal, no discharge. [] Neck: No rigidity, supple, no stridor. [] Cardiovascular: Regular rate and rhythm, brisk cap refill [] Lungs & Thorax: Mild tachypnea. Diffuse inspiratory and expiratory wheezing [] Abdomen: Soft, nondistended. Skin: Warm, dry, no erythema, no rash. [] Back: Unremarkable Extremities: No deformities, range of motion grossly intact, no lower extremity edema [] Neurologic: Alert and oriented X 3, no focal deficits noted. [] Psychologic: Affect normal, judgement normal, mood normal. [] Current Patient Data: Vital Signs: Vital Signs Date Time Temp Pulse Resp B/P (MAP) Pulse Ox O2 Delivery O2 Flow Rate FiO2 05/26/21 02:09 96 Room Air 05/26/21 01:54 99.0 112 22 158/90 (112) EKG: EKG: [] Radiology/Procedures: Radiology/Procedures: Chest x-ray EP interpretation. Normal cardiac silhouette, no effusion or pneumothorax. There are densities in left lower lung possible infiltrate versus atelectasis [] Heart Score: C/O Chest Pain: No Risk Factors: Risk Factors: DM, Current or recent (<one month) smoker, HTN, HLP, family history of CAD, obesity. Risk Scores: Score 0 - 3: 2.5% MACE over next 6 weeks - Discharge Home Score 4 - 6: 20.3% MACE over next 6 weeks - Admit for Clinical Observation Score 7 - 10: 72.7% MACE over next 6 weeks - Early Invasive Strategies Course & Med Decision Making: Course & Med Decision Making Pertinent Labs and Imaging studies reviewed. (See chart for details) Improved with nebulizers and steroids. Appearance of possible infiltrate on x- ray, pending radiologist interpretation. We will treat empirically with steroids and antibiotics. Patient given resources to follow-up with a primary care for regular management of her asthma exacerbations. [] Dragon Disclaimer: Dragon Disclaimer: This electronic medical record was generated, in whole or in part, using a voice recognition dictation system. Departure Departure: Impression: Primary Impression: Asthma exacerbation Additional Impression: Person under investigation for COVID-19 Disposition: HOME / SELF CARE / HOMELESS Condition: STABLE Referrals: PCP,NO (PCP) Patient Instructions: Asthma Attacks, Prevention Scripts Azithromycin (ZITHROMAX) 250 Mg Tablet 1 PKG PO UD for antibiotic for 5 Days, #6 TAB Prov: FELA ASHBY MD 05/26/21 Prednisone (PREDNISONE) 50 Mg Tablet 1 TAB PO DAILY for asthma, #4 TAB You received this medication in the emergency room today. You will starting your next dose tomorrow. Prov: FELA ASHBY MD 05/26/21 Albuterol Sulfate (PROAIR HFA INHALER) 8.5 Gm Hfa.aer.ad 2 PUFF IH PRN Q4-6HRS PRN for wheezing for 21 Days, #1 INHALER 1 Refill Prov: FELA ASHBY MD 05/26/21 FELA ASHBY MD May 26, 2021 02:19
[2021-05-26 02:45] LABS: BASO # 0.1 x10^3/uL (0.0-0.2); BASO % 1 % (0-3); EOS # 0.1 x10^3/uL (0.0-0.7); EOS % 0 % (0-3); HEMATOCRIT 47.3 % (36.0-47.0); LYMPH # 2.2 x10^3/uL (1.0-4.8); LYMPH % 13 % (24-48); MEAN CORPUSCULAR HEMOGLOBIN 30 pg (25-35); MEAN CORPUSCULAR HGB CONC 34 g/dL (31-37); MEAN CORPUSCULAR VOLUME 89 fL (79-100); MONO # 1.2 x10^3/uL (0.0-1.1); MONO % 7 % (0-9); NEUT # 14.1 x10^3uL (1.8-7.7); NEUT % 80 % (31-73); PLATELET COUNT 352 x10^3/uL (140-400); RED BLOOD COUNT 5.34 x10^6/uL (3.50-5.40); RED CELL DISTRIBUTION WIDTH 14.4 % (11.5-14.5); WHITE BLOOD COUNT 17.7 x10^3/uL (4.0-11.0)
[2021-05-26 02:56] LABS: CREATININE 0.6 mg/dL (0.6-1.0); GFR 126.2; POTASSIUM 3.3 mmol/L (3.5-5.1)
[2021-05-26 02:58] LABS: % BANDS 2 % (0-9); % LYMPHS 12 % (24-48); % MONOS 3 % (0-10); % SEGS 83 % (35-66); PLT ESTIMATE ADEQUATE (ADEQUATE)
[2021-05-26] MEDS ORDERED: PROMETH/CODEINE 6.25/10MG 5 ML SYRUP. PO PRN (03:00)
[2021-05-26 03:01] LABS: ALBUMIN 3.8 g/dL (3.4-5.0); MAGNESIUM 2.1 mg/dL (1.8-2.4); TOTAL BILIRUBIN 0.3 mg/dL (0.2-1.0); TOTAL PROTEIN 7.6 g/dL (6.4-8.2)
[2021-05-26 03:18] LABS: BACTERIA,URINE FEW /HPF (0-FEW); BILIRUBIN,URINE NEG (NEG); CLARITY,URINE CLEAR; COLOR,URINE YELLOW; GLUCOSE,URINE NEG (NEG); NITRITE,URINE NEG (NEG); RBC,URINE 0 /HPF (0-2); SQUAMOUS EPITHELIAL CELL,UR FEW /LPF; UROBILINOGEN,URINE 0.2 mg/dL (0.2 mg/dL)
[2021-05-26 03:26] LABS: INFLUENZA A PATIENT NEGATIVE (NEGATIVE); INFLUENZA B PATIENT NEGATIVE (NEGATIVE)
[2021-05-26] MEDS ORDERED: PRED50TA PO (03:35)
[2021-05-26] MEDS ORDERED: AZIT250T PO (03:35)
[2021-05-26] MEDS ORDERED: ALBU2.5V8 IH (03:35)
[2021-05-26 03:57] VITALS: BP 142/72
--- NOTE | 2021-05-26 14:01 | RAD ---
EXAM: CHEST 2 VIEWS. HISTORY: Dyspnea. COMPARISON: 04/08/2021. FINDINGS: Frontal and lateral views of the chest are obtained. There are no confluent infiltrates. There is no pneumothorax or pleural effusion. The heart is not en larged. IMPRESSION: 1. No confluent infiltrates. Electronically signed by: Fabián Ramesh MD (05/26/2021 3:44 AM) [facility]
--- NOTE | 2021-05-27 15:55 | NUR ---
IP: Informed pt of negative covid test. Pt verbalized understanding.
== END 2021-05-26 04:00 | disposition home or self-care (01) ==
LOC: ER 01:51
DX: J45.901 Unspecified asthma with (acute) exacerbation (principal); Z20.822 Contact with and (suspected) exposure to COVID-19
CPT/HCPCS: 71046; 80053; 81001; 81025; 83735; 85007; 85025; 87086; 87804; 94640; 96374; 99285; C9803; J1100; U0003